=== PATIENT | female | born 2000 | race Caucasian/White ===

== ENCOUNTER 2025-09-19 10:30 | Emergency (ER) | payer MEDICAID ==
[~2025-09-19] VITALS: Ht 172.7 cm; Wt 78.0 kg
[2025-09-19] MEDS ORDERED: ONDANSETRON HCL/PF 4 MG/2 ML VIAL ONE (10:46)
[2025-09-19] MEDS ORDERED: MORPHINE SULFATE INJ 4 MG/ML DISP.SYRIN ONE (10:46)
[2025-09-19] MEDS: IV NS 0.9% 1,000 ML BAG IV ONE (10:57)
[2025-09-19] MEDS: MORPHINE SULFATE INJ 2 MG/ML DISP.SYRIN IV ONE (10:58)
[2025-09-19] MEDS: ONDANSETRON HCL/PF 4 MG/2 ML VIAL IVP ONE (10:58)
[2025-09-19 11:02] LABS: PLATELET COUNT (AUTO) 333 K/uL (150-450); RED BLOOD CELL COUNT(AUTO) 5.25 MIL/uL (4.0-5.2); RED CELL DISTRIBUTION WIDTH 14.2 % (11.5-15.0); WHITE BLOOD COUNT (AUTO) 6.7 K/uL (4.3-11.0)
[2025-09-19 11:09] LABS: CALCIUM, SERUM 9.2 mg/dL (8.5-10.1); CREATININE 0.8 mg/dL (0.6-1.3); SODIUM SERUM 137.0 mmol/L (136-145); UREA NITROGEN, BLOOD 5.0 mg/dL (7-18)
[2025-09-19 11:28] LABS: INR 0.98 (0.91-1.10)
[2025-09-19] MEDS ORDERED: IOHEXOL-300 100 ML VIAL IV ONE (11:31)
[2025-09-19] MEDS ORDERED: IV NS 0.9% 250 ML IV ONE (11:32)
[2025-09-19 12:55] VITALS: BP 116/85; TEMP 98.2; O2SAT 100
== END 2025-09-19 12:55 | disposition home or self-care (01) ==
LOC: ER 10:34
DX: S13.4XXA Sprain of ligaments of cervical spine, initial encounter (principal); S20.219A Contusion of unspecified front wall of thorax, initial encounter; S30.11XA Contusion of abdominal wall, initial encounter; R10.20 Pelvic and perineal pain unspecified side; V43.52XA Car driver injured in collision with other type car in traffic accident, initial encounter; Y93.89 Activity, other specified; Y92.410 Unspecified street and highway as the place of occurrence of the external cause; Y99.8 Other external cause status
CPT/HCPCS: 99285; 72125; 96374; 96361; 96375; 93005; 71260; 70450; 74177; 85025; 80048; 36415; 85730; 84702; J2270; J2405; J7030; J7050; Q9967